=== PATIENT | male | born 1965 | race Two or more races ===

== ENCOUNTER 2024-11-01 17:31 | Emergency (ER) | payer MEDICAID ==
[~2024-11-01] VITALS: Ht 165.1 cm; Wt 75.0 kg
[~2024-11-01 17:31] MED LIST: AUG500T PO
[2024-11-01 19:25] VITALS: BP 135/75; PULSE 99; RESP 18; TEMP 98.6; O2SAT 99
== END 2024-11-01 19:27 | disposition home or self-care (01) ==
LOC: ER 17:32
DX: S13.4XXA Sprain of ligaments of cervical spine, initial encounter (principal); S09.90XA Unspecified injury of head, initial encounter; Y04.8XXA Assault by other bodily force, initial encounter; Y93.89 Activity, other specified; Y92.89 Other specified places as the place of occurrence of the external cause; Y99.8 Other external cause status
CPT/HCPCS: 70450; 70486; 72125; 99284